=== PATIENT | female | born 2000 | race Caucasian/White ===

== ENCOUNTER 2021-08-11 09:36 | Outpatient (CLI) | payer OTHER ==
[2021-08-11] MEDS ORDERED: PRENATAL + DHA1 EAC1 PO (10:11)
[2021-08-12] MEDS ORDERED: FERROUS SULFAT325 MG PO (07:27)
[2021-08-12] MEDS ORDERED: MACRODANTIN100 M1 PO (07:27)
== END 2021-08-12 11:20 | disposition home or self-care (01) ==
LOC: OBS/DEL 09:36
PROVIDERS: ATTEND Obstetrics & Gynecology
DX: O23.42 Unspecified infection of urinary tract in pregnancy, second trimester (principal); N39.0 Urinary tract infection, site not specified; Z3A.22 22 weeks gestation of pregnancy

== ENCOUNTER 2021-12-02 04:08 | Inpatient (IN) | payer OTHER ==
[~2021-12-02] VITALS: Ht 149.9 cm; Wt 3.2 kg
[~2021-12-02 04:08] MED LIST: FERROUS SULFAT325 MG PO; MACRODANTIN100 M1 PO; PRENATAL + DHA1 EAC1 PO
== END 2021-12-05 16:10 | disposition home or self-care (01) | DRG 788 ==
LOC: LDR 04:08 → OB/GYN 04:08
PROVIDERS: ADMIT Obstetrics & Gynecology; ATTEND Obstetrics & Gynecology
PROC: 4A1HXCZ Monitoring of Products of Conception, Cardiac Rate, External Approach (ICD-10-PCS; 2021-12-02)
PROC: 10D00Z1 Extraction of Products of Conception, Low, Open Approach (ICD-10-PCS; principal; 2021-12-02 07:00)
DX: O32.1XX0 Maternal care for breech presentation, not applicable or unspecified (principal); Z3A.39 39 weeks gestation of pregnancy; Z37.0 Single live birth; Z20.822 Contact with and (suspected) exposure to COVID-19